=== PATIENT | female | born 1995 | race Caucasian/White ===

== ENCOUNTER → 2016-12-09 | Outpatient (CLI) | payer MEDICAID | LOC: FIMAGING 08:53 | PROVIDERS: ATTEND Registered Nurse | DX: N83.291 Other ovarian cyst, right side (principal); Z97.5 Presence of (intrauterine) contraceptive device ==

== ENCOUNTER → 2016-12-14 | Outpatient (CLI) | payer MEDICAID | LOC: FIMAGING 08:59 | PROVIDERS: ATTEND Registered Nurse | DX: Z12.39 Encounter for other screening for malignant neoplasm of breast (principal); N63 Unspecified lump in breast ==

== ENCOUNTER → 2017-01-24 | Outpatient (CLI) | payer MEDICAID | LOC: FIMAGING 09:49 | PROVIDERS: ATTEND Registered Nurse | DX: N83.201 Unspecified ovarian cyst, right side (principal); N83.202 Unspecified ovarian cyst, left side; Z97.5 Presence of (intrauterine) contraceptive device ==